=== PATIENT | female | born 1960 | race Caucasian/White ===

== ENCOUNTER 2020-10-10 12:46 | Outpatient (CLI) | payer OTHER | END 2020-10-10 12:47 | disposition home or self-care (01) | LOC: CSHMRI 12:46 | PROVIDERS: ATTEND Neurological Surgery | DX: M47.22 Other spondylosis with radiculopathy, cervical region (principal) | CPT/HCPCS: 72141 ==

== ENCOUNTER 2020-11-14 10:11 | Outpatient (CLI) | payer OTHER | END 2020-11-14 10:12 | disposition home or self-care (01) | LOC: CSHCT 10:11 | PROVIDERS: ATTEND Neurological Surgery | DX: Q27.9 Congenital malformation of peripheral vascular system, unspecified (principal); J38.3 Other diseases of vocal cords; E07.9 Disorder of thyroid, unspecified | CPT/HCPCS: 70498 ==